=== PATIENT | female | born 1950 | race Caucasian/White ===

== ENCOUNTER 2025-09-25 11:01 | Inpatient (IN) | payer MEDICARE, MEDICAID ==
[~2025-09-25] VITALS: Ht 154.9 cm; Wt 47.2 kg
[2025-09-25 12:00] LABS: BASO # 0.1 10^3/uL (0.0-0.2); BASO % 1.7 % (0.0-1.0); EOS # 0.1 10^3/uL (0.0-0.5); EOS % 1.7 % (0.0-3.0); LYMPH # 1.4 10^3/uL (1.5-5.0); LYMPH % 24.2 % (24.0-44.0); MONO # 0.5 10^3/uL (0.0-0.8); MONO % 8.5 % (2.0-8.0); NEUTROPHILS # 3.8 10^3/uL (1.5-8.5); NEUTROPHILS % 63.7 % (36.0-66.0); PLATELET COUNT, AUTOMATED 240 10^3/uL (150-450)
[2025-09-25 12:30] LABS: ALT/SGPT 12 U/L (7.0-40); AST/SGOT 18 U/L (<34); CALCIUM LEVEL 9.1 MG/DL (8.3-10.6); CARBON DIOXIDE LEVEL 26 MMOL/L (20-31); CHLORIDE LEVEL 107 MMOL/L (98-107); CREATININE FOR GFR 0.65 MG/DL (0.55-1.30); GLOMERULAR FILTRATION RATE > 90.0 (>39); POTASSIUM SERUM 3.9 MMOL/L (3.5-5.1); SODIUM LEVEL 143 MMOL/L (136-145)
[2025-09-25] MEDS ORDERED: PANT40TA29 PO (12:32)
[2025-09-25] MEDS ORDERED: BUPR150T12 PO (12:32)
[2025-09-25] MEDS ORDERED: FAMO40TA3 PO (12:32)
[2025-09-25] MEDS ORDERED: PARO20TA3 PO (12:32)
[2025-09-25] MEDS ORDERED: PRAM0.123 PO (12:32)
[2025-09-25 12:36] LABS: CK-MB VALUE MASS 1.9 NG/ML (<3.6)
[2025-09-25 12:39] LABS: CPK CREATINE PHOSPHOKINASE 62 U/L (34-145); MB/CK RELATIVE INDEX 3.06 (< OR =4)
[2025-09-25] MEDS: hydrALAZINE 20 MG/ML 1 ML VIAL IV STA (12:39)
[2025-09-25] MEDS ORDERED: ISOVUE-370 76% 100 ML VIAL As Ordered ONE (12:42)
[2025-09-25] MEDS: hydrALAZINE 20 MG/ML 1 ML VIAL IV ONE (13:35)
[2025-09-25 13:45] LABS: CK-MB VALUE MASS 1.3 NG/ML (<3.6)
[2025-09-25 13:46] LABS: CPK CREATINE PHOSPHOKINASE 49.0 U/L (34-145); MB/CK RELATIVE INDEX 2.65 (< OR =4)
[2025-09-25] MEDS: ASPIRIN 81 MG CHEWABLE TABLET PO ONE (14:09)
[2025-09-25] MEDS: NITROGLYCERIN 0.4 MG SUBL TABLET SL PRN (14:14)
[2025-09-25] MEDS ORDERED: CETI-24 PO (14:26)
[2025-09-25] MEDS ORDERED: SENN-186 PO (14:26)
[2025-09-25] MEDS ORDERED: B-12100021 PO (14:26)
[2025-09-25] MEDS ORDERED: HOME MED LIST COMPLETE! XX SCH (14:30)
[2025-09-25 15:19] LABS: CK-MB VALUE MASS 1.6 NG/ML (<3.6)
[2025-09-25 15:34] LABS: CPK CREATINE PHOSPHOKINASE 52.0 U/L (34-145); MB/CK RELATIVE INDEX 3.07 (< OR =4)
[2025-09-25] MEDS ORDERED: ATORVASTATIN 20 MG TAB PO SCH (16:50)
[2025-09-25 17:55] VITALS: BP 150/62; TEMP 99.8; O2SAT 97
[2025-09-25] MEDS: PRAMIPEXOLE 0.125 MG TAB PO SCH (18:13)
[2025-09-25] MEDS: PARoxetine 20MG TABLET PO SCH (18:13)
[2025-09-25] MEDS: ATORVASTATIN 20 MG TAB PO SCH (18:14)
[2025-09-25 18:18] LABS: INR 0.96
[2025-09-25 18:21] LABS: CHOLESTEROL LEVEL 210.0 MG/DL (<200); CHOLESTEROL RISK RATIO 2.73 (<5); LDL CHOLESTEROL 118.5 MG/DL (<100); NON-HDL-C 133.3 MG/DL; TRIGLYCERIDES LEVEL 74.0 MG/DL (<150)
[2025-09-25 18:53] LABS: ESTIMATED AVERAGE GLUCOSE 85.0 MG/DL (60-110)
[2025-09-25 19:15] LABS: KETONE, URINE AUTO RFX TRACE mg/dL (NEGATIVE); MUCUS, URINE RFX SMALL (NEGATIVE); NITRITE, URINE AUTO RFX NEGATIVE (NEGATIVE); RBC, URINE AUTO RFX 3 /HPF (0-3); SQUAM EPITHELIAL CELL UR AURFX 2 /HPF (0-6); WBC, URINE AUTO RFX 5 /HPF (0-3)
[2025-09-25 19:20] LABS: LEUKOCYTE ESTERASE UR AUTO RFX 1+ (NEGATIVE)
[2025-09-25 19:29] VITALS: BP 178/56; TEMP 98.8; O2SAT 95
[2025-09-25] MEDS: SENNA 8.6 MG TAB PO SCH (21:19)
[2025-09-25] MEDS: FAMOTIDINE 20 MG TAB PO SCH (21:19)
[2025-09-25] MEDS: ENOXAPARIN 30 MG/0.3 ML SYRINGE (J1650 PER 10MG) SC SCH (21:20)
[2025-09-25] MEDS: ACETAMINOPHEN 325 MG TAB PO PRN (21:20)
[2025-09-25 23:29] VITALS: BP 168/56; TEMP 97.5; O2SAT 96
[2025-09-26] VITALS (12 sets, daily range): BP systolic 127–189; BP diastolic 52–78; TEMP 97.5–98.7; O2SAT 95–98
[2025-09-26 06:05] LABS: PLATELET COUNT, AUTOMATED 217 10^3/uL (150-450)
[2025-09-26 06:29] LABS: CALCIUM LEVEL 8.9 MG/DL (8.3-10.6); CARBON DIOXIDE LEVEL 25.0 MMOL/L (20-31); CHLORIDE LEVEL 109.0 MMOL/L (98-107); CREATININE FOR GFR 0.75 MG/DL (0.55-1.30); GLOMERULAR FILTRATION RATE 82.0 (>39); POTASSIUM SERUM 3.3 MMOL/L (3.5-5.1); SODIUM LEVEL 144.0 MMOL/L (136-145)
[2025-09-26] MEDS: POTASSIUM CHLORIDE 10MEQ SR TABLET PO ONE (08:35)
[2025-09-26] MEDS: ASPIRIN 81 MG ENTERIC TABLET PO SCH (08:37)
[2025-09-26] MEDS: amLODIPine 5 MG TAB PO SCH (10:04)
[2025-09-26] MEDS: amLODIPine 5 MG TAB PO ONE (13:04)
[2025-09-26] MEDS: CEFDINIR 300 MG CAP PO SCH (20:44)
[2025-09-27] VITALS (9 sets, daily range): BP systolic 135–190; BP diastolic 61–90; TEMP 97.1–97.8; O2SAT 94–97
[2025-09-27] MEDS: LR 1,000 ML IV SCH (03:41)
[2025-09-27 06:17] LABS: PLATELET COUNT, AUTOMATED 205 10^3/uL (150-450)
[2025-09-27 06:24] LABS: CALCIUM LEVEL 8.5 MG/DL (8.3-10.6); CARBON DIOXIDE LEVEL 25.0 MMOL/L (20-31); CHLORIDE LEVEL 110.0 MMOL/L (98-107); CREATININE FOR GFR 0.69 MG/DL (0.55-1.30); GLOMERULAR FILTRATION RATE 89.3 (>39); POTASSIUM SERUM 3.9 MMOL/L (3.5-5.1); SODIUM LEVEL 143.0 MMOL/L (136-145)
[2025-09-27] MEDS: ATORVASTATIN 20 MG TAB PO SCH (10:22)
[2025-09-27] MEDS: amLODIPine 10 MG TAB PO SCH (10:23)
[2025-09-27] MEDS: ISOVUE-300 61% 100 ML VIAL As Ordered ONE (15:47)
[2025-09-27] MEDS ORDERED: LIDOCAINE 2% 100 MG/5 ML SDV (FOR ANES.) As Ordered ONE (16:40)
[2025-09-27] MEDS: ceFAZolin SODIUM 2 GM in DEXTROSE 5% (D5W) ADV/MINI-BAG 50 ML IV ONE (17:04)
[2025-09-27] MEDS ORDERED: ACETAMINOPHEN 1000MG/100ML IV BAG As Ordered ONE (17:05)
[2025-09-27] MEDS: LIDOCAINE 1% SDV 30 ML VIAL As Ordered ONE (17:15)
[2025-09-27] MEDS ORDERED: ONDANSETRON 4MG/2ML VIAL As Ordered ONE (18:18)
[2025-09-28 03:39] VITALS: BP 165/71; TEMP 97.2; O2SAT 97
[2025-09-28 07:01] LABS: PLATELET COUNT, AUTOMATED 212 10^3/uL (150-450)
[2025-09-28 07:15] VITALS: BP 141/65; TEMP 98.3; O2SAT 94
[2025-09-28 07:24] LABS: CALCIUM LEVEL 8.7 MG/DL (8.3-10.6); CARBON DIOXIDE LEVEL 24 MMOL/L (20-31); CHLORIDE LEVEL 107 MMOL/L (98-107); CREATININE FOR GFR 0.65 MG/DL (0.55-1.30); GLOMERULAR FILTRATION RATE > 90.0 (>39); POTASSIUM SERUM 3.8 MMOL/L (3.5-5.1); SODIUM LEVEL 142 MMOL/L (136-145)
[2025-09-28 08:57] VITALS: BP 177/81
[2025-09-28] MEDS: MIRALAX *UNIT DOSE* 17 GM PACKET PO SCH (08:57)
[2025-09-28] MEDS: DOCUSATE SODIUM 100 MG CAPSULE PO SCH (08:58)
[2025-09-28 11:30] VITALS: BP 147/67; TEMP 98.6; O2SAT 93
[2025-09-28 19:38] VITALS: BP 117/68; TEMP 97.3; O2SAT 95
[2025-09-29] VITALS (7 sets, daily range): BP systolic 126–150; BP diastolic 61–80; TEMP 97–97.8; O2SAT 95–97
[2025-09-29 06:18] LABS: BASO # 0.1 10^3/uL (0.0-0.2); BASO % 0.9 % (0.0-1.0); EOS # 0.1 10^3/uL (0.0-0.5); EOS % 2.0 % (0.0-3.0); LYMPH # 1.1 10^3/uL (1.5-5.0); LYMPH % 16.3 % (24.0-44.0); MONO # 0.6 10^3/uL (0.0-0.8); MONO % 8.9 % (2.0-8.0); NEUTROPHILS # 4.7 10^3/uL (1.5-8.5); NEUTROPHILS % 71.7 % (36.0-66.0); PLATELET COUNT, AUTOMATED 209 10^3/uL (150-450)
[2025-09-29 06:41] LABS: CALCIUM LEVEL 8.9 MG/DL (8.3-10.6); CARBON DIOXIDE LEVEL 27 MMOL/L (20-31); CHLORIDE LEVEL 106 MMOL/L (98-107); CREATININE FOR GFR 0.61 MG/DL (0.55-1.30); GLOMERULAR FILTRATION RATE > 90.0 (>39); POTASSIUM SERUM 4.0 MMOL/L (3.5-5.1); SODIUM LEVEL 143 MMOL/L (136-145)
[2025-09-29] MEDS: amLODIPine 5 MG TAB PO SCH (08:46)
[2025-09-30 03:56] VITALS: BP 147/75; TEMP 97.4; O2SAT 95
[2025-09-30 05:50] LABS: BASO # 0.1 10^3/uL (0.0-0.2); BASO % 1.3 % (0.0-1.0); EOS # 0.1 10^3/uL (0.0-0.5); EOS % 2.0 % (0.0-3.0); LYMPH # 1.3 10^3/uL (1.5-5.0); LYMPH % 23.8 % (24.0-44.0); MONO # 0.7 10^3/uL (0.0-0.8); MONO % 12.8 % (2.0-8.0); NEUTROPHILS # 3.3 10^3/uL (1.5-8.5); NEUTROPHILS % 59.9 % (36.0-66.0); PLATELET COUNT, AUTOMATED 176 10^3/uL (150-450)
[2025-09-30 06:08] LABS: CALCIUM LEVEL 8.6 MG/DL (8.3-10.6); CARBON DIOXIDE LEVEL 24 MMOL/L (20-31); CHLORIDE LEVEL 108 MMOL/L (98-107); CREATININE FOR GFR 0.64 MG/DL (0.55-1.30); GLOMERULAR FILTRATION RATE > 90.0 (>39); POTASSIUM SERUM 4.0 MMOL/L (3.5-5.1); SODIUM LEVEL 141 MMOL/L (136-145)
[2025-09-30 08:31] VITALS: BP 155/63; TEMP 97.2; O2SAT 96
[2025-09-30 12:19] VITALS: BP_SYST 144; BP_SYST 160; BP_DIAS 78; BP_DIAS 90; TEMP 97.8; O2SAT 96
[2025-09-30 16:42] VITALS: BP 147/80; TEMP 97.6; O2SAT 97
[2025-09-30 19:46] VITALS: BP 141/71; TEMP 97.5; O2SAT 96
[2025-10-01 03:55] VITALS: BP 135/69; TEMP 97.2; O2SAT 95
[2025-10-01 06:27] LABS: BASO # 0.1 10^3/uL (0.0-0.2); BASO % 0.9 % (0.0-1.0); EOS # 0.1 10^3/uL (0.0-0.5); EOS % 1.8 % (0.0-3.0); LYMPH # 1.4 10^3/uL (1.5-5.0); LYMPH % 24.9 % (24.0-44.0); MONO # 0.6 10^3/uL (0.0-0.8); MONO % 10.8 % (2.0-8.0); NEUTROPHILS # 3.4 10^3/uL (1.5-8.5); NEUTROPHILS % 61.2 % (36.0-66.0); PLATELET COUNT, AUTOMATED 202 10^3/uL (150-450)
[2025-10-01 06:47] LABS: CALCIUM LEVEL 9.5 MG/DL (8.3-10.6); CARBON DIOXIDE LEVEL 28 MMOL/L (20-31); CHLORIDE LEVEL 103 MMOL/L (98-107); CREATININE FOR GFR 0.56 MG/DL (0.55-1.30); GLOMERULAR FILTRATION RATE > 90.0 (>39); POTASSIUM SERUM 4.0 MMOL/L (3.5-5.1); SODIUM LEVEL 140 MMOL/L (136-145)
[2025-10-01 07:19] VITALS: BP 139/78; TEMP 98.2; O2SAT 94
[2025-10-01] MEDS ORDERED: ATOR1TAB21 PO (08:15)
[2025-10-01] MEDS ORDERED: MIRA33506 PO (08:15)
[2025-10-01] MEDS ORDERED: AMLO1TAB24 PO (08:15)
[2025-10-01] MEDS ORDERED: COLA100C5 PO (08:15)
[2025-10-01] MEDS ORDERED: ASPI81TAEC PO (08:15)
[2025-10-01] MEDS ORDERED: ACET-897 PO (08:17)
[2025-10-01] MEDS: buPROPion **XL** 150 MG TABLET PO SCH (09:01)
[2025-10-01 09:02] VITALS: BP 139/78
[2025-10-01] MEDS: BISACODYL 10 MG SUPP PR ONE (09:02)
[2025-10-01] MEDS: CETIRIZINE 10 MG TAB PO SCH (09:03)
== END 2025-10-01 16:19 | DRG 243 ==
LOC: M ED 11:01 → M ED INP 15:37 → M MSPAV 17:50 → M PCU 09-26 11:19
PROVIDERS: ADMIT Internal Medicine; ATTEND Internal Medicine Nephrology
PROC: 02H63JZ Insertion of Pacemaker Lead into Right Atrium, Percutaneous Approach (ICD-10-PCS; 2025-09-27)
PROC: 02HK3JZ Insertion of Pacemaker Lead into Right Ventricle, Percutaneous Approach (ICD-10-PCS; 2025-09-27)
PROC: B246ZZZ Ultrasonography of Right and Left Heart (ICD-10-PCS; 2025-09-27)
PROC: 0JH606Z Insertion of Pacemaker, Dual Chamber into Chest Subcutaneous Tissue and Fascia, Open Approach (ICD-10-PCS; principal; 2025-09-27 15:00)
DX: I44.2 Atrioventricular block, complete (principal); F33.8 Other recurrent depressive disorders; G81.94 Hemiplegia, unspecified affecting left nondominant side; I67.4 Hypertensive encephalopathy; Z68.1 Body mass index [BMI] 19.9 or less, adult; I45.2 Bifascicular block; I10 Essential (primary) hypertension; I16.0 Hypertensive urgency; G89.29 Other chronic pain; K21.9 Gastro-esophageal reflux disease without esophagitis; R53.1 Weakness; K59.09 Other constipation; G20.C Parkinsonism, unspecified; Z66 Do not resuscitate; G25.81 Restless legs syndrome; E87.6 Hypokalemia; R10.A1 Flank pain, right side; R00.1 Bradycardia, unspecified; N30.90 Cystitis, unspecified without hematuria; B96.20 Unspecified Escherichia coli [E. coli] as the cause of diseases classified elsewhere; Z90.49 Acquired absence of other specified parts of digestive tract; Z79.899 Other long term (current) drug therapy